=== PATIENT | female | born 1985 | race Caucasian/White ===

== ENCOUNTER 2016-12-05 09:18 | Emergency (ER) | payer MEDICAID ==
[~2016-12-05] VITALS: Ht 167.6 cm; Wt 68.7 kg
[2016-12-05 09:27] VITALS: BP 122/86
[2016-12-05] MEDS ORDERED: LIDOCAINE 1%, 20ML ONE (09:55)
[2016-12-05] MEDS ORDERED: LIDOCAINE 2%, 20ML SQ ONE (10:00)
== END 2016-12-05 10:24 | disposition home or self-care (01) ==
LOC: ED 10:12
DX: L02.411 Cutaneous abscess of right axilla (principal); F17.210 Nicotine dependence, cigarettes, uncomplicated
CPT/HCPCS: 10160

== ENCOUNTER 2017-06-26 03:45 | Emergency (ER) | payer MEDICAID ==
[2017-06-26] MEDS ORDERED: FAMOTIDINE 20 MG/2 ML ONE ×2 (03:59→04:01)
[2017-06-26] MEDS ORDERED: EPINEPHRINE 1 MG/ML, 1ML ONE ×2 (03:59→04:01)
[2017-06-26] MEDS ORDERED: methylPREDNISolone SOD SUCC 125 MG/2 ML ONE (03:59)
[2017-06-26] MEDS ORDERED: DIPHENHYDRAMINE 50 MG/ML, 1ML ONE (03:59)
[2017-06-26] MEDS ORDERED: ALBUTEROL SULFATE 2.5 MG/3 ML NPPB ONE (04:30)
[2017-06-26] MEDS ORDERED: methylPREDNISolone SOD SUCC 125 MG/2 ML IVPush ONE (04:30)
[2017-06-26] MEDS ORDERED: FAMOTIDINE 20 MG/2 ML IVPush ONE (04:30)
[2017-06-26] MEDS ORDERED: EPINEPHRINE 1 MG/ML, 1ML IM ONE (04:30)
[2017-06-26] MEDS ORDERED: DIPHENHYDRAMINE 50 MG/ML, 1ML IVPush ONE (04:30)
[2017-06-26] MEDS ORDERED: SODIUM CHLORIDE 0.9% 1,000ML IVBOLUS ONE (04:30)
[2017-06-26 05:51] VITALS: BP 132/77
== END 2017-06-26 05:54 | disposition home or self-care (01) ==
LOC: ED 05:18
DX: L50.9 Urticaria, unspecified (principal); F17.200 Nicotine dependence, unspecified, uncomplicated
CPT/HCPCS: 93005; 96361; 96372; 96374; 96375; 99291; J0171; J1200; J2930; J7030; S0028

== ENCOUNTER 2019-05-19 16:01 | Outpatient (CLI) | payer MEDICAID ==
[~2019-05-19] VITALS: Ht 165.1 cm; Wt 97.3 kg
[~2019-05-19 16:01] MED LIST: IBUP-1222 PO
[2019-05-19 16:25] VITALS: BP 109/68
[2019-05-19 16:58] LABS: AMPHETAMINE SCREEN, URINE Negative (Negative); BARBITURATE SCREEN, URINE Negative (Negative); BENZODIAZEPINE SCREEN, URINE Negative (Negative); CANNABINOID SCREEN, URINE Negative (Negative); COCAINE SCREEN, URINE Negative (Negative); METHADONE SCREEN, URINE Negative (Negative); OPIATE SCREEN, URINE Negative (Negative)
== END 2019-05-19 17:18 | disposition home or self-care (01) ==
LOC: LDOP 16:01
PROVIDERS: ATTEND Obstetrics & Gynecology
DX: O42.913 Preterm premature rupture of membranes, unspecified as to length of time between rupture and onset of labor, third trimester (principal); Z3A.35 35 weeks gestation of pregnancy
CPT/HCPCS: 59025; 80307; 84112; 99211; G0463

== ENCOUNTER 2019-06-22 15:47 | Inpatient (IN) | payer MEDICAID ==
[~2019-06-22] VITALS: Ht 165.1 cm; Wt 106.8 kg
[2019-06-23] MEDS ORDERED: NEWBORN KIT ONE ×2 (06:22→16:57)
[2019-06-23] MEDS ORDERED: OXYTOCIN 30U/ 0.9% NaCL 500ML 500 ML IV ONE (06:47)
[2019-06-23] MEDS ORDERED: D5%-LACTATED RINGERS 1,000 ML IV SCH (06:47)
[2019-06-23] MEDS ORDERED: LACTATED RINGERS 1,000 ML IV SCH ×2 (06:47→14:26)
[2019-06-23] MEDS ORDERED: OXYTOCIN 30U/ 0.9% NaCL 500ML 500 ML IV PRN (06:47)
[2019-06-23] MEDS ORDERED: PENICILLIN GK 5,000,000 UNITS in DEXTROSE 5% 100 ML IVPB ONE (07:00)
[2019-06-23] MEDS ORDERED: CALCIUM CARBONATE 500 MG TAB.CHEW PO PRN (07:00)
[2019-06-23] MEDS ORDERED: FENTANYL PF 100 MCG/2ML IV PRN (07:00)
[2019-06-23] MEDS ORDERED: ALUMINUM/MAG/SIMETHICONE 30 ML UDC PO PRN (07:00)
[2019-06-23] MEDS ORDERED: TERBUTALINE 1 MG/ML, 1ML IVPush PRN (07:00)
[2019-06-23] MEDS ORDERED: FENTANYL PF 100 MCG/2ML IVPush PRN (07:00)
[2019-06-23] MEDS ORDERED: TERBUTALINE 1 MG/ML, 1ML SQ PRN (07:00)
[2019-06-23] MEDS ORDERED: MISOPROSTOL 25 MCG TABLET VG PRN (07:00)
[2019-06-23] MEDS ORDERED: ONDANSETRON 2MG/ML, 2ML IVPush PRN (07:00)
[2019-06-23] MEDS ORDERED: OXYTOCIN 30U/ 0.9% NaCL 500ML 500 ML ONE ×3 (07:09→23:11)
[2019-06-23 07:20] VITALS: BP 115/65
[2019-06-23 07:39] LABS: BASOPHILS # (AUTO) 0.04 x10^3/uL (0-0.1); BASOPHILS % (AUTO) 0 % (0-1); EOSINOPHILS # (AUTO) 0.19 x10^3/uL (0-0.4); EOSINOPHILS % (AUTO) 2 % (1-7); LYMPHOCYTES # (AUTO) 1.79 x10^3/uL (1-3.4); LYMPHOCYTES % (AUTO) 20 % (22-44); MD NO; MEAN CORPUSCULAR HGB CONC 33.3 g/dL (32.4-35.8); MEAN CORPUSCULAR VOLUME 90.2 fL (80-100); MONOCYTES % (AUTO) 8 % (2-9); NEUTROPHILS # (AUTO) 6.21 x10^3/uL (1.8-6.8); NEUTROPHILS % (AUTO) 70 % (42-75); PLATELET COUNT 230 x10^3/uL (130-400); RED CELL DISTRIBUTION WIDTH 17.5 % (9.6-15.2)
[2019-06-23 09:42] LABS: AMPHETAMINE SCREEN, URINE Negative (Negative); BARBITURATE SCREEN, URINE Negative (Negative); BENZODIAZEPINE SCREEN, URINE Negative (Negative); CANNABINOID SCREEN, URINE Negative (Negative); COCAINE SCREEN, URINE Negative (Negative); METHADONE SCREEN, URINE Negative (Negative); OPIATE SCREEN, URINE Negative (Negative)
[2019-06-23] MEDS: PENICILLIN GK 2,500,000 UNITS in DEXTROSE 5% 100 ML IVPB SCH ×3 (11:54→19:44)
[2019-06-23] MEDS ORDERED: EPHEDRINE 50 MG/ML, 1ML IVPush PRN (14:30)
[2019-06-23] MEDS ORDERED: LACTATED RINGERS 1,000 ML IVBOLUS PRN (14:30)
[2019-06-23] MEDS ORDERED: FENTANYL/BUPIV./NS/PF 250 ML EPIDCONT SCH (14:59)
[2019-06-23] MEDS ORDERED: FENTANYL PF 500 MCG, BUPIVACAINE/PF 0.5%, 30ML 62.5 ML in SODIUM CHLORIDE 0.9% 177.5 ML EPIDCONT SCH (15:30)
[2019-06-23] MEDS ORDERED: FENTANYL/BUPIV./NS/PF 250 ML EPIDCONT ONE (15:32)
[2019-06-23] MEDS ORDERED: FENTANYL PF 100 MCG/2ML ONE (15:48)
[2019-06-23] MEDS ORDERED: BUPIVACAINE 0.25% ONE (15:48)
[2019-06-23] MEDS ORDERED: LIDOCAINE 1%, 20ML ONE (18:09)
[2019-06-23] MEDS ORDERED: MISOPROSTOL 200 MCG TABLET ONE (18:09)
[2019-06-23] MEDS ORDERED: TRANEXAMIC ACID 100 MG/ML, 10ML ONE ×2 (23:09→23:18)
[2019-06-23 23:41] LABS: BASOPHILS # (AUTO) 0.09 x10^3/uL (0-0.1); BASOPHILS % (AUTO) 1 % (0-1); EOSINOPHILS # (AUTO) 0.07 x10^3/uL (0-0.4); EOSINOPHILS % (AUTO) 1 % (1-7); LYMPHOCYTES # (AUTO) 1.92 x10^3/uL (1-3.4); LYMPHOCYTES % (AUTO) 14 % (22-44); MD NO; MEAN CORPUSCULAR HEMOGLOBIN 29.6 pg (27.0-34.8); MEAN CORPUSCULAR HGB CONC 32.2 g/dL (32.4-35.8); MEAN PLATELET VOLUME 8.6 fL (7.4-10.4); MONOCYTES % (AUTO) 5 % (2-9); NEUTROPHILS # (AUTO) 10.85 x10^3/uL (1.8-6.8); NEUTROPHILS % (AUTO) 80 % (42-75); PLATELET COUNT 224 x10^3/uL (130-400); RED CELL DISTRIBUTION WIDTH 17.2 % (9.6-15.2)
[2019-06-23 23:57] VITALS: BP 89/46
[2019-06-24] VITALS (9 sets, daily range): BP systolic 92–109; BP diastolic 50–60
[2019-06-24] MEDS ORDERED: OXYTOCIN 30U/ 0.9% NaCL 500ML 500 ML ONE
[2019-06-24 00:17] LABS: INTERNATIONAL NORMALIZED RATIO 1.01 (0.93-1.1); PROTHROMBIN TIME 10.6 Seconds (9.6-11.5)
[2019-06-24 01:43] LABS: MEAN CORPUSCULAR HEMOGLOBIN 30.3 pg (27.0-34.8); MEAN CORPUSCULAR HGB CONC 32.8 g/dL (32.4-35.8); MEAN CORPUSCULAR VOLUME 92.4 fL (80-100); MEAN PLATELET VOLUME 8.2 fL (7.4-10.4); PLATELET COUNT 171 x10^3/uL (130-400); RED BLOOD COUNT 2.81 x10^6/uL (3.82-5.3); RED CELL DISTRIBUTION WIDTH 16.1 % (9.6-15.2)
[2019-06-24 01:47] LABS: INTERNATIONAL NORMALIZED RATIO 1.04 (0.93-1.1); PROTHROMBIN TIME 10.9 Seconds (9.6-11.5)
[2019-06-24 02:03] LABS: BASOPHILS # (AUTO) 0.03 x10^3/uL (0-0.1); BASOPHILS % (AUTO) 0 % (0-1); EOSINOPHILS # (AUTO) 0.01 x10^3/uL (0-0.4); EOSINOPHILS % (AUTO) 0 % (1-7); LYMPHOCYTES # (AUTO) 0.95 x10^3/uL (1-3.4); LYMPHOCYTES % (AUTO) 6 % (22-44); MD SCAN; MONOCYTES % (AUTO) 6 % (2-9); NEUTROPHILS # (AUTO) 15.39 x10^3/uL (1.8-6.8); NEUTROPHILS % (AUTO) 89 % (42-75)
[2019-06-24] MEDS: METHYLERGONOVINE 0.2MG TABLET PO SCH ×2 (02:19→09:00)
[2019-06-24] MEDS ORDERED: EPHEDRINE 50 MG/ML, 1ML ONE ×2 (02:45→03:46)
[2019-06-24] MEDS ORDERED: EPHEDRINE 50 MG/ML, 1ML IVPush ONE (03:00)
[2019-06-24] MEDS ORDERED: ETOMIDATE 20 MG/10 ML ONE ×2 (03:05→03:47)
[2019-06-24] MEDS ORDERED: FENTANYL PF 250 MCG/5ML ONE (03:05)
[2019-06-24] MEDS ORDERED: TRANEXAMIC ACID 100 MG/ML, 10ML ONE (03:06)
[2019-06-24] MEDS ORDERED: WATER-INJECTION,STERILE 10 ML IV ONE (03:46)
[2019-06-24] MEDS ORDERED: CEFAZOLIN 1,000 MG ONE ×3 (03:46)
[2019-06-24] MEDS ORDERED: LIDOCAINE-MPF 2% ,5ML ONE (03:46)
[2019-06-24] MEDS ORDERED: PROPOFOL 10 MG/ML, 20ML ONE (03:46)
[2019-06-24] MEDS ORDERED: ONDANSETRON 2MG/ML, 2ML ONE (03:46)
[2019-06-24] MEDS ORDERED: PHENYLEPHRINE 10 MG/ML ONE (03:46)
[2019-06-24] MEDS ORDERED: OXYTOCIN 10 UNITS/ML, 1ML ONE (03:46)
[2019-06-24] MEDS ORDERED: SUCCINYLCHOLINE 20 MG/ML, 10ML ONE (03:46)
[2019-06-24] MEDS ORDERED: ROCURONIUM 10MG/ML,5ML ONE ×2 (03:47)
[2019-06-24] MEDS ORDERED: HYDROmorphone 2 MG/ML, 1ML ONE ×5 (03:55→17:54)
[2019-06-24 04:54] LABS: INTERNATIONAL NORMALIZED RATIO 1.06 (0.93-1.1); PROTHROMBIN TIME 11.1 Seconds (9.6-11.5)
[2019-06-24] MEDS ORDERED: FUROSEMIDE 20 MG/2 ML IV ONE (05:30)
[2019-06-24 08:11] LABS: ALANINE AMINOTRANSFERASE 17 U/L (12-78); ALBUMIN 1.5 g/dL (3.4-5.0); ANION GAP 6 mmol/L (5-15); CALCIUM 6.4 mg/dL (8.5-10.1); CHLORIDE 110 mmol/L (98-107)
[2019-06-24 08:14] LABS: MEAN CORPUSCULAR HEMOGLOBIN 28.9 pg (27.0-34.8); MEAN CORPUSCULAR HGB CONC 33.3 g/dL (32.4-35.8); MEAN CORPUSCULAR VOLUME 86.7 fL (80-100); RED BLOOD COUNT 2.73 x10^6/uL (3.82-5.3); RED CELL DISTRIBUTION WIDTH 15.2 % (9.6-15.2)
[2019-06-24 08:22] LABS: ALKALINE PHOSPHATASE 52 U/L (45-117); BILIRUBIN,TOTAL 0.4 mg/dL (0.2-1.0); TOTAL PROTEIN 3.6 g/dL (6.4-8.2)
[2019-06-24 08:37] LABS: D-DIMER (DIC) 0.65 ug/mlFEU (0.00-0.52)
[2019-06-24 08:39] LABS: PROTIME 10.7 Seconds (9.6-11.5)
[2019-06-24] MEDS: HYDROmorphone 1 MG/ML, 1ML INJ IV PRN ×3 (08:40→15:13)
[2019-06-24 08:41] LABS: MEAN PLATELET VOLUME 7.9 fL (7.4-10.4); PLATELET COUNT 111 x10^3/uL (130-400)
[2019-06-24 08:42] LABS: MD YES
[2019-06-24 08:47] LABS: BAND#(MANUAL) 1.48 x10^3/uL; BANDS%(MANUAL) 19 % (0-7); LYMPH#(MANUAL) 0.55 x10^3/uL (1-3.4); LYMPHS% (MANUAL) 7 % (22-44); METAMYELOCYTES# (MANUAL) 0.16 x10^3/uL (0-0); METAMYELOCYTES% (MANUAL) 2 % (0-1); MONOS#(MANUAL) 0.23 x10^3/uL (0.3-2.7); MONOS% (MANUAL) 3 % (2-9); SEG#(MANUAL) 5.38 x10^3/uL (1.8-6.8); SEGS% (MANUAL) 69 % (42-75)
[2019-06-24 08:48] LABS: <PLATELET ESTIMATE> DECREASED; <PLT MORPHOLOGY> NORMAL PLT MORPH; <RBC MORPHOLOGY> NORMAL
[2019-06-24] MEDS: PIPERACILLIN/TAZO/PMX 3.375GM 50 ML IV SCH ×3 (09:38→22:05)
[2019-06-24] MEDS ORDERED: PHYTONADIONE 10 MG/ML, 1ML SQ ONE (11:00)
[2019-06-24] MEDS ORDERED: D5%-0.45% NACL 1,000 ML IV SCH (11:00)
[2019-06-24] MEDS ORDERED: MAGNESIUM SULFATE PMX IV ONE (11:00)
[2019-06-24] MEDS ORDERED: SODIUM CHLORIDE 0.9% IV ONE (11:30)
[2019-06-24] MEDS ORDERED: MAGNESIUM SULFATE IV ONE (11:30)
[2019-06-24 12:37] LABS: MEAN CORPUSCULAR HEMOGLOBIN 30.1 pg (27.0-34.8); MEAN CORPUSCULAR HGB CONC 33.3 g/dL (32.4-35.8); MEAN CORPUSCULAR VOLUME 90.4 fL (80-100); MEAN PLATELET VOLUME 8.3 fL (7.4-10.4); PLATELET COUNT 114 x10^3/uL (130-400); RED BLOOD COUNT 2.74 x10^6/uL (3.82-5.3); RED CELL DISTRIBUTION WIDTH 16.4 % (9.6-15.2)
[2019-06-24 12:50] LABS: MD YES
[2019-06-24 12:53] LABS: BASOS#(MANUAL) 0.06 x10^3/uL (0-0.1); BASOS% (MANUAL) 1 % (0-1); EOS#(MANUAL) 0.06 x10^3/uL (0.0-0.4); EOS% (MANUAL) 1 % (1-7); LYMPH#(MANUAL) 1.05 x10^3/uL (1-3.4); LYMPHS% (MANUAL) 19 % (22-44); METAMYELOCYTES# (MANUAL) 0.06 x10^3/uL (0-0); METAMYELOCYTES% (MANUAL) 1 % (0-1); MONOS#(MANUAL) 0.39 x10^3/uL (0.3-2.7); MONOS% (MANUAL) 7 % (2-9); MYELOCYTES# (MANUAL) 0.06 x10^3/uL (0-0); MYELOCYTES% (MANUAL) 1 % (0-0); REACTIVE LYMPHS # (MANUAL) 0.06 x10^3/uL (0-0); REACTIVE LYMPHS % (MANUAL) 1 % (0-0)
[2019-06-24 12:54] LABS: BAND#(MANUAL) 0.55 x10^3/uL; BANDS%(MANUAL) 10 % (0-7); SEG#(MANUAL) 3.25 x10^3/uL (1.8-6.8); SEGS% (MANUAL) 59 % (42-75)
[2019-06-24 12:56] LABS: <PLATELET ESTIMATE> DECREASED; <PLT MORPHOLOGY> NORMAL PLT MORPH; ANISOCYTOSIS 1+
[2019-06-24] MEDS ORDERED: OXYcodone IR 5MG TABLET PO PRN (16:00)
[2019-06-24 16:13] LABS: BASOPHILS # (AUTO) 0.01 x10^3/uL (0-0.1); BASOPHILS % (AUTO) 0 % (0-1); EOSINOPHILS # (AUTO) 0.11 x10^3/uL (0-0.4); EOSINOPHILS % (AUTO) 2 % (1-7); LYMPHOCYTES % (AUTO) 19 % (22-44); MD NO; MEAN CORPUSCULAR HEMOGLOBIN 30.1 pg (27.0-34.8); MEAN CORPUSCULAR VOLUME 88.7 fL (80-100); MEAN PLATELET VOLUME 8.2 fL (7.4-10.4); MONOCYTES # (AUTO) 0.57 x10^3/uL (0.2-0.8); MONOCYTES % (AUTO) 9 % (2-9); NEUTROPHILS # (AUTO) 4.55 x10^3/uL (1.8-6.8); NEUTROPHILS % (AUTO) 71 % (42-75); PLATELET COUNT 124 x10^3/uL (130-400); RED BLOOD COUNT 2.74 x10^6/uL (3.82-5.3); RED CELL DISTRIBUTION WIDTH 16.6 % (9.6-15.2)
[2019-06-24] MEDS ORDERED: CALCIUM CHLORIDE 13.6 MEQ in SODIUM CHLORIDE 0.9% 100 ML IV ONE (16:30)
[2019-06-24 16:45] LABS: INTERNATIONAL NORMALIZED RATIO 0.92 (0.93-1.1); PROTHROMBIN TIME 9.7 Seconds (9.6-11.5)
[2019-06-24] MEDS ORDERED: OXYcodone IR 5MG TABLET ONE (17:55)
[2019-06-24] MEDS: OXYcodone IR 5MG TABLET PO PRN ×2 (18:01→22:10)
[2019-06-24 20:02] LABS: MICROSCOPIC INDICATED
[2019-06-24 20:05] LABS: CULTURE INDICATED? NO
[2019-06-24] MEDS ORDERED: HYDROmorphone 1 MG/ML, 1ML INJ IV PRN (20:30)
[2019-06-24] MEDS: HYDROmorphone 2 MG/ML, 1ML IV PRN (21:14)
[2019-06-24 22:33] LABS: BASOPHILS % (AUTO) 1 % (0-1); EOSINOPHILS # (AUTO) 0.04 x10^3/uL (0-0.4); EOSINOPHILS % (AUTO) 1 % (1-7); LYMPHOCYTES # (AUTO) 1.42 x10^3/uL (1-3.4); LYMPHOCYTES % (AUTO) 20 % (22-44); MD NO; MEAN CORPUSCULAR HEMOGLOBIN 29.7 pg (27.0-34.8); MEAN CORPUSCULAR HGB CONC 33.7 g/dL (32.4-35.8); MEAN CORPUSCULAR VOLUME 88.3 fL (80-100); MONOCYTES # (AUTO) 0.57 x10^3/uL (0.2-0.8); MONOCYTES % (AUTO) 8 % (2-9); NEUTROPHILS # (AUTO) 4.97 x10^3/uL (1.8-6.8); NEUTROPHILS % (AUTO) 70 % (42-75); PLATELET COUNT 140 x10^3/uL (130-400); RED BLOOD COUNT 2.63 x10^6/uL (3.82-5.3); RED CELL DISTRIBUTION WIDTH 16.6 % (9.6-15.2)
[2019-06-25] MEDS: OXYcodone IR 5MG TABLET PO PRN ×5 (03:03→20:17)
[2019-06-25] MEDS: PIPERACILLIN/TAZO/PMX 3.375GM 50 ML IV SCH ×2 (03:03→09:49)
[2019-06-25] MEDS: HYDROmorphone 2 MG/ML, 1ML IV PRN ×5 (03:26→21:14)
[2019-06-25 03:43] LABS: D-DIMER (DIC) 0.63 ug/mlFEU (0.00-0.52); PROTIME 9.4 Seconds (9.6-11.5)
[2019-06-25 03:44] LABS: ALBUMIN 1.3 g/dL (3.4-5.0); ANION GAP 5 mmol/L (5-15); CALCIUM 7.2 mg/dL (8.5-10.1); CHLORIDE 107 mmol/L (98-107)
[2019-06-25 03:48] LABS: ALANINE AMINOTRANSFERASE 14 U/L (12-78); ALKALINE PHOSPHATASE 63 U/L (45-117); BILIRUBIN,TOTAL 0.2 mg/dL (0.2-1.0); CREATININE 0.41 mg/dL (0.55-1.02); TOTAL PROTEIN 4.1 g/dL (6.4-8.2)
[2019-06-25 06:09] LABS: MEAN CORPUSCULAR HEMOGLOBIN 30.2 pg (27.0-34.8); MEAN CORPUSCULAR HGB CONC 33.6 g/dL (32.4-35.8); MEAN CORPUSCULAR VOLUME 89.8 fL (80-100); MEAN PLATELET VOLUME 8.1 fL (7.4-10.4); PLATELET COUNT 140 x10^3/uL (130-400); RED BLOOD COUNT 2.55 x10^6/uL (3.82-5.3); RED CELL DISTRIBUTION WIDTH 17.3 % (9.6-15.2)
[2019-06-25 06:24] LABS: BASOPHILS # (AUTO) 0.01 x10^3/uL (0-0.1); BASOPHILS % (AUTO) 0 % (0-1); EOSINOPHILS # (AUTO) 0.21 x10^3/uL (0-0.4); EOSINOPHILS % (AUTO) 3 % (1-7); LYMPHOCYTES # (AUTO) 1.26 x10^3/uL (1-3.4); LYMPHOCYTES % (AUTO) 15 % (22-44); MD SCAN; MONOCYTES # (AUTO) 0.73 x10^3/uL (0.2-0.8); MONOCYTES % (AUTO) 9 % (2-9); NEUTROPHILS # (AUTO) 6.24 x10^3/uL (1.8-6.8); NEUTROPHILS % (AUTO) 74 % (42-75)
[2019-06-25] MEDS ORDERED: CALCIUM CHLORIDE 13.6 MEQ in SODIUM CHLORIDE 0.9% 100 ML IV ONE (06:30)
[2019-06-25] MEDS ORDERED: MAGNESIUM SULFATE PMX 2GM/50ML 50 ML IV ONE (06:30)
[2019-06-25] MEDS ORDERED: D5%-0.45% NACL 1,000 ML IV SCH (11:00)
[2019-06-25] MEDS ORDERED: BISACODYL 10 MG SUPP PR PRN (13:30)
[2019-06-25] MEDS ORDERED: METOCLOPRAMIDE 5 MG/ML, 2ML IV PRN (13:30)
[2019-06-25] MEDS ORDERED: DIPH,PERTUSS(ACELL),TET VAC/PF NC IM-VACC PRN (13:30)
[2019-06-25] MEDS ORDERED: ONDANSETRON 2MG/ML, 2ML IV PRN (13:30)
[2019-06-25] MEDS ORDERED: ACETAMINOPHEN 325 MG TABLET PO PRN ×2 (13:30)
[2019-06-25] MEDS ORDERED: SIMETHICONE 80 MG CHEW TAB PO PRN (13:30)
[2019-06-25] MEDS ORDERED: OXYcodone/APAP 5/325MG TABLET PO PRN ×2 (13:30)
[2019-06-25] MEDS: IBUPROFEN 600 MG TABLET PO PRN ×2 (14:08→20:17)
[2019-06-25 15:00] VITALS: BP 114/72
[2019-06-25 15:08] LABS: BASOPHILS # (AUTO) 0.02 x10^3/uL (0-0.1); BASOPHILS % (AUTO) 0 % (0-1); EOSINOPHILS # (AUTO) 0.09 x10^3/uL (0-0.4); EOSINOPHILS % (AUTO) 1 % (1-7); LYMPHOCYTES # (AUTO) 1.42 x10^3/uL (1-3.4); LYMPHOCYTES % (AUTO) 13 % (22-44); MEAN CORPUSCULAR HEMOGLOBIN 29.3 pg (27.0-34.8); MEAN CORPUSCULAR HGB CONC 33.4 g/dL (32.4-35.8); MEAN CORPUSCULAR VOLUME 87.8 fL (80-100); MEAN PLATELET VOLUME 8.1 fL (7.4-10.4); MONOCYTES # (AUTO) 0.89 x10^3/uL (0.2-0.8); MONOCYTES % (AUTO) 8 % (2-9); NEUTROPHILS # (AUTO) 8.48 x10^3/uL (1.8-6.8); NEUTROPHILS % (AUTO) 78 % (42-75); PLATELET COUNT 170 x10^3/uL (130-400); RED CELL DISTRIBUTION WIDTH 16.7 % (9.6-15.2)
[2019-06-25 15:09] LABS: MD NO
[2019-06-25] MEDS ORDERED: HYDROmorphone 2 MG/ML, 1ML ONE ×2 (15:23→21:11)
[2019-06-25] MEDS: FERROUS GLUCONATE 324 MG TABLET PO SCH (16:48)
[2019-06-25] MEDS: DOCUSATE 100 MG CAPSULE PO PRN (16:48)
[2019-06-25 20:30] VITALS: BP 102/66
[2019-06-26] MEDS: OXYcodone IR 5MG TABLET PO PRN ×6 (00:35→21:46)
[2019-06-26] MEDS ORDERED: HYDROmorphone 2 MG/ML, 1ML ONE ×5 (01:31→19:15)
[2019-06-26] MEDS: HYDROmorphone 2 MG/ML, 1ML IV PRN ×5 (01:34→19:18)
[2019-06-26] MEDS: IBUPROFEN 600 MG TABLET PO PRN ×4 (03:39→23:19)
[2019-06-26 03:52] LABS: MEAN CORPUSCULAR VOLUME 90.7 fL (80-100); MEAN PLATELET VOLUME 8.3 fL (7.4-10.4); PLATELET COUNT 164 x10^3/uL (130-400); RED BLOOD COUNT 2.26 x10^6/uL (3.82-5.3); RED CELL DISTRIBUTION WIDTH 16.7 % (9.6-15.2)
[2019-06-26 03:54] LABS: BASOPHILS # (AUTO) 0.01 x10^3/uL (0-0.1); BASOPHILS % (AUTO) 0 % (0-1); EOSINOPHILS # (AUTO) 0.28 x10^3/uL (0-0.4); EOSINOPHILS % (AUTO) 3 % (1-7); LYMPHOCYTES # (AUTO) 1.74 x10^3/uL (1-3.4); LYMPHOCYTES % (AUTO) 20 % (22-44); MD SCAN; MONOCYTES # (AUTO) 0.86 x10^3/uL (0.2-0.8); MONOCYTES % (AUTO) 10 % (2-9); NEUTROPHILS # (AUTO) 6.01 x10^3/uL (1.8-6.8); NEUTROPHILS % (AUTO) 68 % (42-75)
[2019-06-26] MEDS: PRENATAL VIT/IRON/FA 1 EACH TABLET PO SCH (07:51)
[2019-06-26] MEDS: DOCUSATE 100 MG CAPSULE PO PRN ×2 (07:51→21:45)
[2019-06-26] MEDS ORDERED: DIPHENHYDRAMINE 50 MG/ML, 1ML IVPush ONE (08:00)
[2019-06-26] MEDS: FERROUS GLUCONATE 324 MG TABLET PO SCH ×2 (08:00→17:35)
[2019-06-26 08:42] VITALS: BP 114/71
[2019-06-26 09:05] VITALS: BP 108/66
[2019-06-26 11:20] VITALS: BP 109/70
[2019-06-26 16:00] VITALS: BP 126/83
[2019-06-26 16:00] LABS: BASOPHILS # (AUTO) 0.04 x10^3/uL (0-0.1); BASOPHILS % (AUTO) 0 % (0-1); EOSINOPHILS # (AUTO) 0.22 x10^3/uL (0-0.4); EOSINOPHILS % (AUTO) 2 % (1-7); LYMPHOCYTES # (AUTO) 2.02 x10^3/uL (1-3.4); LYMPHOCYTES % (AUTO) 23 % (22-44); MD NO; MEAN CORPUSCULAR HEMOGLOBIN 30.1 pg (27.0-34.8); MEAN CORPUSCULAR HGB CONC 33.3 g/dL (32.4-35.8); MEAN CORPUSCULAR VOLUME 90.5 fL (80-100); MEAN PLATELET VOLUME 7.8 fL (7.4-10.4); MONOCYTES % (AUTO) 8 % (2-9); NEUTROPHILS # (AUTO) 5.99 x10^3/uL (1.8-6.8); NEUTROPHILS % (AUTO) 67 % (42-75); PLATELET COUNT 200 x10^3/uL (130-400); RED BLOOD COUNT 2.65 x10^6/uL (3.82-5.3)
[2019-06-26 19:55] VITALS: BP 112/68
[2019-06-27] MEDS: OXYcodone IR 5MG TABLET PO PRN ×5 (03:00→21:26)
[2019-06-27] MEDS ORDERED: HYDROmorphone 2 MG/ML, 1ML ONE (05:24)
[2019-06-27] MEDS: IBUPROFEN 600 MG TABLET PO PRN ×3 (05:30→17:23)
[2019-06-27] MEDS: HYDROmorphone 2 MG/ML, 1ML IV PRN (05:31)
[2019-06-27 06:08] LABS: BASOPHILS # (AUTO) 0.02 x10^3/uL (0-0.1); BASOPHILS % (AUTO) 0 % (0-1); EOSINOPHILS # (AUTO) 0.27 x10^3/uL (0-0.4); EOSINOPHILS % (AUTO) 4 % (1-7); LYMPHOCYTES # (AUTO) 1.62 x10^3/uL (1-3.4); LYMPHOCYTES % (AUTO) 26 % (22-44); MD NO; MEAN CORPUSCULAR HEMOGLOBIN 31.2 pg (27.0-34.8); MEAN CORPUSCULAR HGB CONC 33.7 g/dL (32.4-35.8); MEAN CORPUSCULAR VOLUME 92.6 fL (80-100); MONOCYTES # (AUTO) 0.51 x10^3/uL (0.2-0.8); MONOCYTES % (AUTO) 8 % (2-9); NEUTROPHILS # (AUTO) 3.88 x10^3/uL (1.8-6.8); NEUTROPHILS % (AUTO) 62 % (42-75); PLATELET COUNT 217 x10^3/uL (130-400); RED BLOOD COUNT 2.68 x10^6/uL (3.82-5.3); RED CELL DISTRIBUTION WIDTH 16.9 % (9.6-15.2)
[2019-06-27 06:15] LABS: ALANINE AMINOTRANSFERASE 21 U/L (12-78); ALBUMIN 1.7 g/dL (3.4-5.0); ANION GAP 6 mmol/L (5-15); CALCIUM 7.8 mg/dL (8.5-10.1); CHLORIDE 105 mmol/L (98-107); CREATININE 0.44 mg/dL (0.55-1.02)
[2019-06-27 06:18] LABS: ALKALINE PHOSPHATASE 88 U/L (45-117); BILIRUBIN,TOTAL 0.2 mg/dL (0.2-1.0); TOTAL PROTEIN 5.4 g/dL (6.4-8.2)
[2019-06-27 07:30] VITALS: BP 117/65
[2019-06-27] MEDS ORDERED: MAGNESIUM SULFATE PMX 2GM/50ML 50 ML IV ONE (07:30)
[2019-06-27] MEDS: FERROUS GLUCONATE 324 MG TABLET PO SCH ×2 (08:15→17:23)
[2019-06-27] MEDS: PRENATAL VIT/IRON/FA 1 EACH TABLET PO SCH (08:15)
[2019-06-27] MEDS: DOCUSATE 100 MG CAPSULE PO PRN ×2 (08:16→19:42)
[2019-06-27 15:28] LABS: BASOPHILS # (AUTO) 0.03 x10^3/uL (0-0.1); BASOPHILS % (AUTO) 0 % (0-1); EOSINOPHILS # (AUTO) 0.29 x10^3/uL (0-0.4); EOSINOPHILS % (AUTO) 4 % (1-7); LYMPHOCYTES # (AUTO) 1.67 x10^3/uL (1-3.4); LYMPHOCYTES % (AUTO) 23 % (22-44); MD NO; MEAN CORPUSCULAR HEMOGLOBIN 31.3 pg (27.0-34.8); MEAN CORPUSCULAR HGB CONC 33.8 g/dL (32.4-35.8); MEAN CORPUSCULAR VOLUME 92.8 fL (80-100); MEAN PLATELET VOLUME 8.1 fL (7.4-10.4); MONOCYTES # (AUTO) 0.64 x10^3/uL (0.2-0.8); MONOCYTES % (AUTO) 9 % (2-9); NEUTROPHILS # (AUTO) 4.74 x10^3/uL (1.8-6.8); NEUTROPHILS % (AUTO) 64 % (42-75); PLATELET COUNT 258 x10^3/uL (130-400); RED BLOOD COUNT 2.74 x10^6/uL (3.82-5.3)
[2019-06-27 19:37] VITALS: BP 126/75
[2019-06-28] MEDS: IBUPROFEN 600 MG TABLET PO PRN ×3 (00:38→15:55)
[2019-06-28] MEDS: OXYcodone IR 5MG TABLET PO PRN ×6 (02:24→19:55)
[2019-06-28 05:40] LABS: BASOPHILS # (AUTO) 0.02 x10^3/uL (0-0.1); BASOPHILS % (AUTO) 0 % (0-1); EOSINOPHILS # (AUTO) 0.33 x10^3/uL (0-0.4); EOSINOPHILS % (AUTO) 6 % (1-7); LYMPHOCYTES # (AUTO) 1.65 x10^3/uL (1-3.4); LYMPHOCYTES % (AUTO) 28 % (22-44); MD NO; MEAN CORPUSCULAR HEMOGLOBIN 30.8 pg (27.0-34.8); MEAN CORPUSCULAR HGB CONC 33.1 g/dL (32.4-35.8); MEAN CORPUSCULAR VOLUME 93.2 fL (80-100); MEAN PLATELET VOLUME 7.8 fL (7.4-10.4); MONOCYTES # (AUTO) 0.64 x10^3/uL (0.2-0.8); MONOCYTES % (AUTO) 11 % (2-9); NEUTROPHILS # (AUTO) 3.32 x10^3/uL (1.8-6.8); NEUTROPHILS % (AUTO) 56 % (42-75); PLATELET COUNT 252 x10^3/uL (130-400); RED BLOOD COUNT 2.66 x10^6/uL (3.82-5.3); RED CELL DISTRIBUTION WIDTH 16.9 % (9.6-15.2)
[2019-06-28] MEDS ORDERED: OXYcodone IR 5MG TABLET ONE (07:25)
[2019-06-28] MEDS ORDERED: POTASSIUM CHLORIDE 20 MEQ TAB.ER.PRT PO ONE (08:00)
[2019-06-28] MEDS ORDERED: FUROSEMIDE 40 MG/4 ML IV ONE (08:00)
[2019-06-28 08:25] VITALS: BP 103/63
[2019-06-28] MEDS: PRENATAL VIT/IRON/FA 1 EACH TABLET PO SCH (09:43)
[2019-06-28] MEDS: DOCUSATE 100 MG CAPSULE PO PRN ×2 (09:43→19:57)
[2019-06-28] MEDS: FERROUS GLUCONATE 324 MG TABLET PO SCH ×2 (10:14→18:09)
[2019-06-28 19:50] VITALS: BP 116/79
[2019-06-29] MEDS: IBUPROFEN 600 MG TABLET PO PRN ×3 (00:57→14:27)
[2019-06-29] MEDS: OXYcodone IR 5MG TABLET PO PRN ×3 (00:59→11:04)
[2019-06-29] MEDS: PRENATAL VIT/IRON/FA 1 EACH TABLET PO SCH (07:42)
[2019-06-29] MEDS: FERROUS GLUCONATE 324 MG TABLET PO SCH (07:43)
[2019-06-29] MEDS: DOCUSATE 100 MG CAPSULE PO PRN (07:43)
[2019-06-29 08:06] VITALS: BP 123/70
[2019-06-29] MEDS ORDERED: IBUP-1222 PO (13:38)
[2019-06-29] MEDS ORDERED: OXYC-306 PO (13:43)
[2019-06-29] MEDS ORDERED: FERR324T5 PO (13:44)
[2019-06-29] MEDS ORDERED: BISA10SU54 PR (13:47)
== END 2019-06-29 15:00 | disposition home or self-care (01) | DRG 768 ==
LOC: LDIP 06-23 06:20 → CCU 06-24 07:08 → 2NW 06-25 12:51
PROVIDERS: ADMIT Obstetrics & Gynecology; ATTEND Internal Medicine
PROC: 10D07Z6 Extraction of Products of Conception, Vacuum, Via Natural or Artificial Opening (ICD-10-PCS; principal; 2019-06-23)
PROC: 30233N1 Transfusion of Nonautologous Red Blood Cells into Peripheral Vein, Percutaneous Approach (ICD-10-PCS; 2019-06-23)
PROC: 04LE0ZT Occlusion of Right Uterine Artery, Open Approach (ICD-10-PCS; 2019-06-24)
PROC: 0TN70ZZ Release Left Ureter, Open Approach (ICD-10-PCS; 2019-06-24)
PROC: 0UTC0ZZ Resection of Cervix, Open Approach (ICD-10-PCS; 2019-06-24)
PROC: 0UT90ZL Resection of Uterus, Supracervical, Open Approach (ICD-10-PCS; 2019-06-24)
PROC: 0UB70ZZ Excision of Bilateral Fallopian Tubes, Open Approach (ICD-10-PCS; 2019-06-24)
PROC: 0UB10ZZ Excision of Left Ovary, Open Approach (ICD-10-PCS; 2019-06-24)
PROC: 0T9B70Z Drainage of Bladder with Drainage Device, Via Natural or Artificial Opening (ICD-10-PCS; 2019-06-24)
PROC: 02H633Z Insertion of Infusion Device into Right Atrium, Percutaneous Approach (ICD-10-PCS; 2019-06-24)
PROC: 30233M1 Transfusion of Nonautologous Plasma Cryoprecipitate into Peripheral Vein, Percutaneous Approach (ICD-10-PCS; 2019-06-24)
PROC: 30233R1 Transfusion of Nonautologous Platelets into Peripheral Vein, Percutaneous Approach (ICD-10-PCS; 2019-06-24)
DX: O99.12 Other diseases of the blood and blood-forming organs and certain disorders involving the immune mechanism complicating childbirth (principal); Z37.0 Single live birth; R57.8 Other shock; E87.2 Acidosis; D62 Acute posthemorrhagic anemia; O72.1 Other immediate postpartum hemorrhage; D69.6 Thrombocytopenia, unspecified; E83.42 Hypomagnesemia; E83.51 Hypocalcemia; E87.70 Fluid overload, unspecified; I95.81 Postprocedural hypotension; M79.7 Fibromyalgia; O99.284 Endocrine, nutritional and metabolic diseases complicating childbirth; D72.825 Bandemia; O75.89 Other specified complications of labor and delivery; O99.02 Anemia complicating childbirth; Z91.041 Radiographic dye allergy status; Z3A.39 39 weeks gestation of pregnancy; Z82.49 Family history of ischemic heart disease and other diseases of the circulatory system
CPT/HCPCS: 36415; 36600; 74018; J3490; S0020; 71045; 80053; 80307; 81001; 82803; 83605; 83735; 83880; 84100; 84443; 85025; 85049; 85379; 85384; 85610; 85730; 86592; 86850; 86900; 86923; 87081; 88307; G0378; J0690; J1170; J1940; J2405; J2540; J2543; J2704; J3010; J3430; J3475; J0330; J1200; J2370; J2590; J7050; J7120; P9012; P9016; P9017; P9035